=== PATIENT | female | born 2000 | race Caucasian/White ===

== ENCOUNTER 2022-02-11 20:44 | Outpatient (REF) | payer OTHER, SELFPAY ==
[2022-02-11 21:31] LABS: Bacteria Few HPF (Negative); C & S Indicated? C&S Done As Ordered; Crystals Negative HPF (Negative); Epithelial Cells Few HPF (Negative); Mucus Negative (Negative); RBC 0-2 HPF (0-2); WBC >50 HPF (0-5)
== END 2022-02-11 20:45 | disposition home or self-care (01) ==
LOC: LBN 20:44
PROVIDERS: Visit Provider Physician Assistant Medical
DX: R30.9 Painful micturition, unspecified (principal)
CPT/HCPCS: 87077; 81015; 87086; 87186

== ENCOUNTER 2022-03-08 18:54 | Emergency (ER) | payer OTHER, SELFPAY ==
[2022-03-08 19:04] VITALS: BP 116/76; PULSE 80; RESP 15; TEMP 36.8; O2SAT 96
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
[2022-03-08] MEDS: Ibuprofen 600 MG TAB PO (19:27)
[2022-03-08] MEDS: Acetaminophen 500 MG TAB 1000 MG PO (19:27)
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
[2022-03-08 21:08] VITALS: RESP 15
== END 2022-03-08 21:09 | disposition home or self-care (01) ==
PROVIDERS: Emergency Provider Physician Assistant
DX: S93.402A Sprain of unspecified ligament of left ankle, initial encounter (principal); S90.32XA Contusion of left foot, initial encounter; V86.99XA Unspecified occupant of other special all-terrain or other off-road motor vehicle injured in nontraffic accident, initial encounter
CPT/HCPCS: 81025; 99284; 73610; 73630; 99282

== ENCOUNTER 2022-08-30 16:39 | Emergency (ER) | payer OTHER, SELFPAY ==
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
[2022-08-30 16:42] VITALS: BP 107/61; PULSE 80; RESP 16; O2SAT 98
== END 2022-08-30 17:02 | disposition home or self-care (01) ==
LOC: ER 16:59
PROVIDERS: Emergency Provider Emergency Medicine
DX: W20.8XXA Other cause of strike by thrown, projected or falling object, initial encounter; S06.9X0A Unspecified intracranial injury without loss of consciousness, initial encounter
CPT/HCPCS: 99282

== ENCOUNTER 2022-08-31 12:44 | Emergency (ER) | payer OTHER, SELFPAY ==
[2022-08-31 12:51] VITALS: BP 116/80; PULSE 70; RESP 20; O2SAT 99
--- NOTE | 2022-08-31 15:40 | NUR.NOTE ---
Nursing Note: Per access pt left without being seen @ [id number]
== END 2022-08-31 15:30 | disposition left against medical advice (07) ==
DX: Z53.21 Procedure and treatment not carried out due to patient leaving prior to being seen by health care provider (principal)

== ENCOUNTER 2022-09-01 21:43 | Emergency (ER) | payer OTHER, SELFPAY ==
[2022-09-01 21:48] VITALS: BP 125/67; PULSE 85; RESP 16; TEMP 36.5; O2SAT 100
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
[2022-09-01 23:12] VITALS: BP 91/67; PULSE 74; RESP 17; O2SAT 98
== END 2022-09-01 23:13 | disposition home or self-care (01) ==
PROVIDERS: Emergency Provider Emergency Medicine
DX: S09.8XXD Other specified injuries of head, subsequent encounter (principal); R11.0 Nausea; R42 Dizziness and giddiness
CPT/HCPCS: 81025; 99284; 70450; 99283

== ENCOUNTER 2023-08-27 22:09 | Outpatient (REF) | payer OTHER, SELFPAY ==
[2023-08-27 22:45] LABS: Bilirubin Negative (Negative); Blood Negative (Negative); Clarity Clear (Clear); Glucose Negative (Negative); Ketones Negative (Negative); Leukocyte Esterase Negative (Negative); Nitrite Negative (Negative); Specific Gravity 1.015 (1.005-1.025); Urobilinogen 0.2 mg/dL (Up to 0.2)
== END 2023-08-27 22:10 | disposition home or self-care (01) ==
LOC: LBN 22:09
PROVIDERS: Visit Provider Physician Assistant Medical
DX: N39.0 Urinary tract infection, site not specified (principal)
CPT/HCPCS: 81003